=== PATIENT | female | born 1975 | race Caucasian/White ===

== ENCOUNTER 2017-03-10 13:29 | Emergency (ER) | payer MEDICARE, MEDICAID ==
[2017-03-10 14:16] VITALS: BP 125/57
--- NOTE | 2017-03-10 15:43 | EDM.PDOC ---
ED HPI GENERAL MEDICAL PROBLEM - General Chief Complaint: Genitourinary Problem Stated Complaint: RIGHT SIDE PAIN Time Seen by Provider: 03/10/17 14:45 Source of Information: Reports: Patient History Limitations: Reports: No Limitations - History of Present Illness INITIAL COMMENTS - FREE TEXT/NARRATIVE: Patient is a 41 year old a female who presents to the E.D. complaining of right sided pain. Described as sharp in nature severe with onset. Pain started after having a BM. She has had one episode with no further issues since. States Stool was soft/formed with straining required. She was sitting on the toilet when this occurred after voiding. Pain lasted for approx 10 to 15 minutes. She became nauseated and sweathy. She has no history of kidney stones , constipations, ovarian cyst, recent illness, dysuria, abdnormal vaginal discharge, sexually active, diarrhea, or any additional complaints. PMH: Factor V Leiden, Seasonal Allergies Medicatations: BCP, ASA, Singulair, and claritan SH: none stated PCP: Samples Right Flank Pain Score (Numeric/FACES): 1 - Related Data Allergies Allergy/AdvReac Type Severity Reaction Status Date / Time No Known Allergies Allergy Verified 03/10/17 14:12 Home Meds: Home Meds Albuterol Sulfate [Proventil Hfa] 1 puff INH ASDIRECTED 07/29/16 [History] Aspirin [Halfprin] 81 mg PO DAILY 07/29/16 [History] Esomeprazole [NexIUM] 40 mg PO DAILY 07/29/16 [History] Hether 0.35 mg PO DAILY 07/29/16 [History] Loratadine [Alavert] 10 mg PO DAILY 07/29/16 [History] Monolukast 10 mg PO DAILY 07/29/16 [History] Prednisone [IMW: predniSONE] 40 mg PO WITHBREAKFAST #10 tab 07/29/16 [Rx] Past Medical History Other Respiratory History: seasonal allergies, pet and animal danders. Gastrointestinal History: Reports: GERD, Hemorrhoids - Past Surgical History HEENT Surgical History: Reports: Oral Surgery Social & Family History - Tobacco Use Smoking Status *Q: Never Smoker - Caffeine Use Caffeine Use: Reports: Soda - Recreational Drug Use Recreational Drug Use: No ED ROS GENERAL - Review of Systems Review Of Systems: ROS reveals no pertinent complaints other than HPI. ED EXAM, GI/ABD - Physical Exam Exam: See Below Exam Limited By: No Limitations General Appearance: Alert, WD/WN, No Apparent Distress Ears: Hearing Grossly Normal Nose: Normal Inspection Throat/Mouth: Normal Voice, No Airway Compromise Neck: Normal Inspection, Supple Respiratory/Chest: No Respiratory Distress, Lungs Clear, Normal Breath Sounds, No Accessory Muscle Use, Chest Non-Tender Cardiovascular: Normal Peripheral Pulses, Regular Rate, Rhythm GI/Abdominal Exam: Normal Bowel Sounds, Soft, Non-Tender, No Organomegaly, No Distention, No Abnormal Bruit, Other (Right sided flank discomfort with palpation. Mild in nature. ) Back Exam: Normal Inspection, Full Range of Motion. No: CVA Tenderness (L), CVA Tenderness (R) Extremities: Normal Inspection, Normal Range of Motion, Non-Tender Neurological: Alert, Oriented, CN II-XII Intact, Normal Cognition, No Motor/ Sensory Deficits Psychiatric: Normal Affect Skin Exam: Warm, Dry, Intact, Normal Color Course - Vital Signs Last Recorded V/S: Last Vital Signs Temp 97.3 F 03/10/17 14:12 Pulse 80 03/10/17 14:12 Resp 15 03/10/17 14:12 BP 125/57 L 03/10/17 14:12 Pulse Ox 100 03/10/17 14:12 - Orders/Labs/Meds Labs: Laboratory Tests 03/10/17 03/10/17 03/10/17 Range/Units 14:12 15:45 15:45 WBC 8.78 (3.98-10.04) K/mm3 RBC 4.56 (3.98-5.22) M/mm3 Hgb 14.2 (11.2-15.7) gm/L Hct 42.9 (34.1-44.9) % MCV 94.1 (79.4-94.8) fl MCH 31.1 (25.6-32.2) pg MCHC 33.1 (32.2-35.5) g/dl RDW Std Deviation 42.1 (36.4-46.3) fL Plt Count 204 (182-369) K/mm3 MPV 10.3 (9.4-12.3) fl Neut % (Auto) 76.4 H (34.0-71.1) % Lymph % (Auto) 16.1 L (19.3-51.7) % Bibb % (Auto) 6.0 (4.7-12.5) % Eos % (Auto) 1.0 (0.7-5.8) Baso % (Auto) 0.3 (0.1-1.2) % Neut # (Auto) 6.70 H (1.56-6.13) K/mm3 Lymph # (Auto) 1.41 (1.18-3.74) K/mm3 Bibb # (Auto) 0.53 H (0.24-0.36) K/mm3 Eos # (Auto) 0.09 (0.04-0.36) K/mm3 Baso # (Auto) 0.03 (0.01-0.08) K/mm3 Sodium 141 (136-145) mEq/L Potassium 4.1 (3.5-5.1) mEq/L Chloride 104 (98-107) mEq/L Carbon Dioxide 28 (21-32) mEq/L Anion Gap 13.1 (5-15) BUN 11 (7-18) mg/dL Creatinine 1.3 H (0.55-1.02) mg/dL Est Cr Clr Drug Dosing 60.12 mL/min Estimated GFR (MDRD) 45 (>60) mL/min BUN/Creatinine Ratio 8.5 L (14-18) Glucose 89 (74-106) mg/dL Calcium 9.1 (8.5-10.1) mg/dL Total Bilirubin 0.5 (0.2-1.0) mg/dL AST 13 L (15-37) U/L ALT 20 (14-59) U/L Alkaline Phosphatase 63 (46-116) U/L C-Reactive Protein 0.4 (<1.0) mg/dL Total Protein 7.7 (6.4-8.2) g/dl Albumin 4.4 (3.4-5.0) g/dl Globulin 3.3 gm/dL Albumin/Globulin Ratio 1.3 (1-2) HCG, Qual (NEGATIVE) Urine Color Darren H (Yellow) Urine Appearance Clear (Clear) Urine pH 5.5 (5.0-8.0) Ur Specific [place] > or = 1.030 (1.005-1.030) Urine Protein 1+ H (Negative) Urine Glucose (UA) Negative (Negative) Urine Ketones Negative (Negative) Urine Occult Blood 3+ H (Negative) Urine Nitrite Negative (Negative) Urine Bilirubin 1+ H (Negative) Urine Urobilinogen 0.2 (0.2-1.0) Ur Leukocyte Esterase Negative (Negative) Urine RBC >100 H (0-5) /hpf Urine WBC 0-5 (0-5) /hpf Ur Epithelial Cells 0-5 (0-5) /hpf Urine Bacteria Many H (FEW) /hpf Urine Mucus Moderate H (FEW) /hpf 03/10/17 Range/Units 15:45 WBC (3.98-10.04) K/mm3 RBC (3.98-5.22) M/mm3 Hgb (11.2-15.7) gm/L Hct (34.1-44.9) % MCV (79.4-94.8) fl MCH (25.6-32.2) pg MCHC (32.2-35.5) g/dl RDW Std Deviation (36.4-46.3) fL Plt Count (182-369) K/mm3 MPV (9.4-12.3) fl Neut % (Auto) (34.0-71.1) % Lymph % (Auto) (19.3-51.7) % Bibb % (Auto) (4.7-12.5) % Eos % (Auto) (0.7-5.8) Baso % (Auto) (0.1-1.2) % Neut # (Auto) (1.56-6.13) K/mm3 Lymph # (Auto) (1.18-3.74) K/mm3 Bibb # (Auto) (0.24-0.36) K/mm3 Eos # (Auto) (0.04-0.36) K/mm3 Baso # (Auto) (0.01-0.08) K/mm3 Sodium (136-145) mEq/L Potassium (3.5-5.1) mEq/L Chloride (98-107) mEq/L Carbon Dioxide (21-32) mEq/L Anion Gap (5-15) BUN (7-18) mg/dL Creatinine (0.55-1.02) mg/dL Est Cr Clr Drug Dosing mL/min Estimated GFR (MDRD) (>60) mL/min BUN/Creatinine Ratio (14-18) Glucose (74-106) mg/dL Calcium (8.5-10.1) mg/dL Total Bilirubin (0.2-1.0) mg/dL AST (15-37) U/L ALT (14-59) U/L Alkaline Phosphatase (46-116) U/L C-Reactive Protein (<1.0) mg/dL Total Protein (6.4-8.2) g/dl Albumin (3.4-5.0) g/dl Globulin gm/dL Albumin/Globulin Ratio (1-2) HCG, Qual Negative (NEGATIVE) Urine Color (Yellow) Urine Appearance (Clear) Urine pH (5.0-8.0) Ur Specific [place] (1.005-1.030) Urine Protein (Negative) Urine Glucose (UA) (Negative) Urine Ketones (Negative) Urine Occult Blood (Negative) Urine Nitrite (Negative) Urine Bilirubin (Negative) Urine Urobilinogen (0.2-1.0) Ur Leukocyte Esterase (Negative) Urine RBC (0-5) /hpf Urine WBC (0-5) /hpf Ur Epithelial Cells (0-5) /hpf Urine Bacteria (FEW) /hpf Urine Mucus (FEW) /hpf Meds: Medications Discontinued Medications Generic Name Dose Route Start Last Admin Trade Name Freq PRN Reason Stop Dose Admin Sodium Chloride 1,000 mls @ 250 mls/hr 03/10/17 15:45 03/10/17 15:48 Normal Saline IV 250 mls/hr ASDIRECTED ALEX Administration Sodium Chloride 10 ml 03/10/17 15:40 03/10/17 16:12 Saline Flush FLUSH 10 ml ASDIRECTED PRN Administration Keep Vein Open - Re-Assessments/Exams Free Text/Narrative Re-Assessment/Exam: UA revealed darren in color, protein one plus, occult blood 3+, bilirubin 1+, rbc 's greater than 100, bacteria many, and mucus moderate. Patient has no history of kidney stones or ovarian cysts. Presumably patient may have passed a stone. She is not on her menstrual cycle. Will obtain basic labs including CBC, chem 14, CRP. In addition CT of the abdomen and pelvis without contrast ordered. Patient is not thus no hCG will be obtained. Labs reviewed. 03/10/[address] of the abdomen and pelvis without IV contrast impression: No acute abnormality in the abdomen or pelvis. 1706 Patient remains pain-free. Unclear etiology of current complaint. Patient possibly passed a kidney stone with the amount of blood within her urine. No findings consistent for infection. She has no history of ovarian cyst. She is ready be discharged home. Discharge instructions as documented. Departure - Departure Time of Disposition: 17:09 Disposition: Home, Self-Care 01 Condition: Good Clinical Impression: Right flank pain Hematuria Qualifiers: Hematuria type: other microscopic Qualified Code(s): R31.29 - Other microscopic hematuria Abdominal pain Qualifiers: Abdominal location: right lower quadrant Qualified Code(s): R10.31 - Right lower quadrant pain - Discharge Information Instructions: Abdominal Pain, Adult, [id number], Flank Pain, [id number], Hematuria, Adult Referrals: Ana Joe PA [Primary Care Provider] - Forms: ED Department Discharge Additional Instructions: As discussed CT the abdomen did not reveal any acute abnormalities. Blood work was essentially normal. UA did reveal copious amounts of blood present. Etiology of current complaint possibility of passing a kidney stone.You have had no history of ovarian cyst. Thus will have you followup with PCP this coming week to ensure hematuria is resolving. Push the fluids. Return to the E.D. for any new or worsening symptoms.
[2017-03-10] MEDS ORDERED: Sodium Chloride 0.9% 1,000 ML IV SCH (15:45)
[2017-03-10] MEDS: Sodium Chloride 0.9% 10 ML Syringe FLUSH PRN ×2 (16:02→16:12)
--- NOTE | 2017-03-11 08:00 | CT ---
CT abdomen and pelvis Technique: Multiple axial sections were obtained from above the dome of the diaphragm inferiorly through the pubic symphysis. Intravenous and oral contrast has not been given. Study was performed as a ureteral stone protocol. Comparison: No previous CT imaging. Findings: Kidneys show no abnormal calcifications. No ureteral dilatation or ureteral stone is seen. No bladder calculi are identified. Visualized lung bases show nothing acute. Noncontrast appearance of the liver and spleen appears within normal limits. Adrenal glands show no nodule. Pancreas is within normal limits. Gallbladder shows no calcified gallstones. Aorta shows no aneurysmal dilatation. No retroperitoneal adenopathy or mesenteric abnormalities are seen. Appendix is seen which appears normal. No pelvic mass or adenopathy is seen. Minimal increased stool is seen within portions of the colon. No free fluid or inflammatory change is seen. Bone window settings were reviewed which appear within normal limits for the patient's age. Impression: 1. No renal calculi, ureteral dilatation or ureteral stone is seen. 2. Slight increased stool within the colon. 3. Nothing acute is appreciated on noncontrast CT study of the abdomen and pelvis performed as a ureteral stone protocol. Diagnostic code #2 I agree with preliminary report issued by [employer] ([employer] preliminary report dictated on 03/10/17, 5:12 PM Central Time)
== END 2017-03-10 17:31 | disposition home or self-care (01) ==
LOC: JD.ED 13:29
DX: R10.31 Right lower quadrant pain (principal); R31.29 Other microscopic hematuria; K21.9 Gastro-esophageal reflux disease without esophagitis; Z79.82 Long term (current) use of aspirin; Z79.899 Other long term (current) drug therapy
CPT/HCPCS: 36415; 74176; 80053; 81001; 84703; 85025; 86140; 87086; 96360; 96361; 99284; J7040; J7050

== ENCOUNTER 2017-10-16 09:24 | Day surgery (SDC) | payer MEDICARE, MEDICAID ==
[~2017-10-16 09:24] MED LIST: Lactated Ringers 1,000 ML IV SCH; Lidocaine 1%/Sod Bicarbonate in NS 8.4% 1 ML Syringe IDERM PRN; Midazolam 1 MG/ML 2 ML SDV ONE; Propofol 200 MG/20 ML SDV ONE; Sodium Chloride 0.9% 10 ML Syringe FLUSH PRN; fentaNYL 100 MCG/2 ML SDV ONE
--- NOTE | 2017-10-16 10:00 | PCM.PREANE ---
Preanesthetic Assessment - Procedure Proposed Procedure: diag colonoscopy - Anesthesia/Transfusion/Family Hx Anesthesia History: Prior Anesthesia Without Reaction Family History of Anesthesia Reaction: No Transfusion History: No Prior Transfusion(s) - Review of Systems General: No Symptoms Pulmonary: Cough (3-4 years) Cardiovascular: No Symptoms Gastrointestinal: Abdominal Pain (today) Neurological: No Symptoms Other: Reports: Thyroid Problems - Physical Assessment NPO Status Date: 10/15/17 NPO Status Time: 23:59 Pulse: 98 O2 Sat by Pulse Oximetry: 99 Respiratory Rate: 16 Blood Pressure: 120/98 Temperature: 98.9 F Height: 5 ft 5 in Weight: 75 kg ASA Class: 2 Mental Status: Alert & Oriented x3 Airway Class: Mallampati = 1 Dentition: Reports: Normal Dentition Thyro-Mental Finger Breadths: 3 Mouth Opening Finger Breadths: 3 ROM/Head Extension: Full Lungs: Clear to Auscultation, Normal Respiratory Effort Cardiovascular: Regular Rate, Regular Rhythm - Lab Values: refusing urine hcg preg test - Allergies Allergies/Adverse Reactions: Allergies Allergy/AdvReac Type Severity Reaction Status Date / Time cat dander Allergy Sneezing Verified 10/15/17 14:44 - Blood Blood Available: No - Acknowledgements Anesthesia Type Planned: MAC Pt an Appropriate Candidate for the Planned Anesthesia: Yes Alternatives and Risks of Anesthesia Discussed w Pt/Guardian: Yes Pt/Guardian Understands and Agrees with Anesthesia Plan: Yes PreAnesthesia Questionnaire HEENT History: Reports: Allergic Rhinitis Cardiovascular History: Reports: Blood Clots/VTE/DVT Other Respiratory History: seasonal allergies, pet and animal danders, chronic cough Gastrointestinal History: Reports: GERD, Hemorrhoids Genitourinary History: Reports: UTI, Recurrent, Other (See Below) Other Genitourinary History: ovarian cyst, vaginal discharge and itching, bartholian cyst, dysuria, hematuria MAGNETIC DOCTOR History: Reports: None Musculoskeletal History: Reports: Other (See Below) Other Musculoskeletal History: heel spur surgery Neurological History: Reports: None Psychiatric History: Reports: None Endocrine/Metabolic History: Reports: Hypothyroidism Hematologic History: Reports: Other (See Below) Other Hematologic History: factor V leiden Immunologic History: Reports: None Oncologic (Cancer) History: Reports: None Dermatologic History: Reports: Other (See Below) Other Dermatologic History: skin infection - Past Surgical History Head Surgeries/Procedures: Reports: None HEENT Surgical History: Reports: Oral Surgery Cardiovascular Surgical History: Reports: None Respiratory Surgical History: Reports: None GI Surgical History: Reports: Other (See Below) (hemmorrhoid) Female Surgical History: Reports: None Male Surgical History: Reports: None Endocrine Surgical History: Reports: None Neurological Surgical History: Reports: None Musculoskeletal Surgical History: Reports: None, Other (See Below) (heel spur) Oncologic Surgical History: Reports: None - History Comment History Comment: not on singular but on proair prn - SUBSTANCE USE Smoking Status *Q: Never Smoker Tobacco Use Within Last Twelve Months: No Second Hand Smoke Exposure: Yes Days Per Week of Alcohol Use: 1 (seldom) Number of Drinks Per Day: 1 Total Drinks Per Week: 1 Recreational Drug Use History: No - HOME MEDS Home Medications: Home Meds Aspirin [Halfprin] 81 mg PO DAILY 07/29/16 [History] Esomeprazole Magnesium [Nexium] 40 mg PO DAILY 10/15/17 [History] Montelukast [Singulair] 10 mg PO DAILY 10/15/17 [History] Norethindrone [Jojo] 0.35 mg PO DAILY 10/15/17 [History] - CURRENT (IN HOUSE) MEDS Current Meds: Current Medications Lactated Ringer's (Ringers, Lactated) 1,000 mls @ 125 mls/hr IV ASDIRECTED ALEX Stop: 10/16/17 23:00 Lidocaine/Sodium Bicarbonate (Buffered Lidocaine 1% In Ns 8.4%) 0.25 ml IDERM ONETIME PRN PRN Reason: Prior to IV Start Stop: 10/16/17 18:00 Sodium Chloride (Saline Flush) 10 ml FLUSH ASDIRECTED PRN PRN Reason: Keep Vein Open Stop: 10/16/17 18:00 Discontinued Medications Fentanyl (Sublimaze) Confirm Administered Dose 100 mcg .ROUTE .STK-MED ONE Stop: 10/16/17 09:23 Midazolam HCl (Versed 1 Mg/Ml) Confirm Administered Dose 2 mg .ROUTE .STK-MED ONE Stop: 10/16/17 09:24 Propofol (Diprivan 20 Ml) Confirm Administered Dose 200 mg .ROUTE .STK-MED ONE Stop: 10/16/17 09:23
--- NOTE | 2017-10-16 11:23 | PCM.OPNOTE ---
- General Post-Op/Procedure Note Date of Surgery/Procedure: 10/16/17 Operative Procedure(s): Colonoscopy with random rectal biopsy Findings: Anal tags but otherwise normal colonoscopy Pre Op Diagnosis: Change in bowel habits Post-Op Diagnosis: Anal tags Anesthesia Technique: MAC, Moderate Sedation Primary Surgeon: Oscar nSow Pathology: Rectal biopsy EBL in mLs: 0 Complications: None Condition: Good Free Text/Narrative:: After adequate IV sedation and analgesia was obtained with monitoring the patient was placed on her left side. Perianal inspection revealed the anal tags. Digital rectal examination was normal. A lubricated colonoscope was inserted into the rectum and advanced to the cecum without difficulty. The bowel preparation was excellent. The cecum right colon transverse and descending colons were endoscopically normal with no mass lesions or inflammatory changes seen. The descending and sigmoid were unremarkable as well. The rectum in both views was endoscopically normal but because of her history a random biopsy in the distal rectum was taken for pathologic evaluation. Air was removed as I finished the procedure which she tolerated well. Body Straightener photographs were taken for the patient and for the medical record.
--- NOTE | 2017-10-16 11:25 | PCM48HPAN ---
Post Anesthesia Note - EVALUATION WITHIN 48HRS OF ANESTHETIC Vital Signs in Normal Range: Yes Patient Participated in Evaluation: Yes Respiratory Function Stable: Yes Airway Patent: Yes Cardiovascular Function Stable: Yes Hydration Status Stable: Yes Pain Control Satisfactory: Yes Nausea and Vomiting Control Satisfactory: Yes Mental Status Recovered: Yes Pulse Rate: 75 SaO2: 99 Resp Rate: 12 Temperature: 98.8 F Blood Pressure: 116/61
[2017-10-16 11:48] VITALS: BP 108/64
== END 2017-10-16 12:08 | disposition home or self-care (01) ==
LOC: JD.SDS 09:24
PROVIDERS: ATTEND Surgery
DX: R19.4 Change in bowel habit (principal); K64.4 Residual hemorrhoidal skin tags; K21.9 Gastro-esophageal reflux disease without esophagitis; E03.9 Hypothyroidism, unspecified; Z79.82 Long term (current) use of aspirin; Z79.899 Other long term (current) drug therapy; Z98.890 Other specified postprocedural states
CPT/HCPCS: 45380; J2250; J3010; J7120; 00811; J2704

== ENCOUNTER 2019-03-31 11:01 | Emergency (ER) | payer MEDICARE, MEDICAID ==
[2019-03-31 11:05] VITALS: BP 131/74; PULSE 92
[2019-03-31] MEDS ORDERED: HYDROmorphone 1 MG/ML Syringe IVPUSH ONE (11:54)
[2019-03-31] MEDS ORDERED: Metoclopramide 10 MG/2 ML SDV IVPUSH ONE (11:55)
--- NOTE | 2019-03-31 11:59 | EDM.PDOC ---
ED HPI GENERAL MEDICAL PROBLEM - General Chief Complaint: Back Pain or Injury Stated Complaint: [facility] Time Seen by Provider: 03/31/19 11:54 Source of Information: Reports: Patient, Family (mother) History Limitations: Reports: No Limitations - History of Present Illness INITIAL COMMENTS - FREE TEXT/NARRATIVE: 33-year-old female presents to the ED with diffuse low back pain which she describes as quite spastic and worse with certain movements. Pain radiates down her right thigh towards her knee. Constant feeling of need to void without any significant dysuria. No gross hematuria. She of kidney stones. She states pain is mostly across her lower back both sides and not up into the flanks. She has a history of recurrent urinary tract infections. Her father has kidney stones but she has never had one. No previous abdominal surgery. On examination the patient is febrile. Onset: Sudden (She she started to have some low back discomfort last evening but it became much more severe this morning) Onset Date: 03/31/19 Onset Time: 07:30 Duration: Hour(s):, Getting Worse Location: Reports: Back (Fused low back pain with a feeling of need to void.), Radiates to ( In radiates down pain radiates down the right leg to her knee.) Quality: Reports: Ache, Burning, Sharp, Stabbing Severity: Moderate Improves with: Reports: None Worsens with: Reports: None, Other Context: Denies: Activity, Exercise, Lifting, Sick Contact, Trauma, Other Associated Symptoms: Reports: Fever/Chills, Loss of Appetite, Malaise. 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.) Lower Back Pain Score (Numeric/FACES): 10 - Related Data Allergies Allergy/AdvReac Type Severity Reaction Status Date / Time cat dander Allergy Sneezing Verified 03/31/19 11:05 Home Meds: Home Meds Aspirin [Halfprin] 81 mg PO DAILY 07/29/16 [History] Esomeprazole Magnesium [Nexium] 40 mg PO DAILY 10/15/17 [History] Loratadine 1 tab PO DAILY 10/16/17 [History] Albuterol Sulfate [Proair Hfa] 2 puff IH DAILY 01/31/19 [History] Diclofenac Sodium [Voltaren] 50 mg PO TID #21 tab.ec 03/31/19 [Rx] Past Medical History HEENT History: Reports: Allergic Rhinitis Cardiovascular History: Reports: Blood Clots/VTE/DVT Respiratory History: Reports: Asthma Other Respiratory History: seasonal allergies, pet and animal danders, chronic cough Gastrointestinal History: Reports: GERD, Hemorrhoids Genitourinary History: Reports: UTI, Recurrent, Other (See Below) Other Genitourinary History: ovarian cyst, vaginal discharge and itching, bartholian cyst, dysuria, hematuria 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 Musculoskeletal History: Reports: Other (See Below) Other Musculoskeletal History: heel spur surgery Psychiatric History: Reports: None Endocrine/Metabolic History: Reports: Hypothyroidism Hematologic History: Reports: Other (See Below) Other Hematologic History: factor V leiden Immunologic History: Reports: None Oncologic (Cancer) History: Reports: None Dermatologic History: Reports: Other (See Below) Other Dermatologic History: skin infection - Past Surgical History Head Surgeries/Procedures: Reports: None HEENT Surgical History: Reports: Oral Surgery Cardiovascular Surgical History: Reports: None Respiratory Surgical History: Reports: None GI Surgical History: Reports: Other (See Below) Female Surgical History: Reports: None Endocrine Surgical History: Reports: None Neurological Surgical History: Reports: None Musculoskeletal Surgical History: Reports: None, Other (See Below) Oncologic Surgical History: Reports: None - History Comment History Comment: not on singular but on proair prn Social & Family History - Tobacco Use Smoking Status *Q: Never Smoker - Caffeine Use Caffeine Use: Reports: Soda - Recreational Drug Use Recreational Drug Use: No - Living Situation & Occupation Living situation: Reports: Occupation: Disabled ED ROS GENERAL - Review of Systems Review Of Systems: See Below Constitutional: Reports: Fever, Malaise (Patient feels very febrile to me.), Weakness, Fatigue, Decreased Appetite. Denies: Chills, Weight Loss HEENT: Reports: No Symptoms Respiratory: Reports: No Symptoms Cardiovascular: Reports: No Symptoms Endocrine: Reports: Fatigue GI/Abdominal: Reports: Abdominal Pain (Diffuse suprapubic lower abdominal pain radiating into the back.) : Reports: Frequency, Urgency. Denies: Dysuria Musculoskeletal: Reports: Back Pain (Views low back pain worsened by movement.) Skin: Reports: No Symptoms. Denies: Cyanosis, Jaundice, Mottled, Pallor, Diaphoresis, Pruritis, Rash, Erythema, Wound, Burn(s) Neurological: Reports: Difficulty Walking (Due to low back pain.), Weakness. Denies: Confusion, Dizziness, Headache, Pre-Existing Deficit, Syncope, Trouble Speaking Psychiatric: Reports: No Symptoms Hematologic/Lymphatic: Reports: No Symptoms Immunologic: Reports: No Symptoms ED EXAM,LOWER BACK PAIN/INJURY - Physical Exam Exam: See Below Exam Limited By: No Limitations General Appearance: Alert, WD/WN, Moderate Distress, Other (Since I seen her she was on the bedpan had passed a few drops of clear looking urine.) Eye Exam: Bilateral Eye: Normal Inspection Throat/Mouth: Normal Inspection, Normal Lips, Normal Oropharynx Head: Atraumatic, Normocephalic Neck: Normal Inspection, Supple, Non-Tender, Full Range of Motion. No: Lymphadenopathy (R) Respiratory/Chest: No Respiratory Distress, Lungs Clear, Normal Breath Sounds, No Accessory Muscle Use, Chest Non-Tender Cardiovascular: Normal Peripheral Pulses, Regular Rate, Rhythm, No Edema, No Gallop, No Murmur, No Rub GI/Abdominal: Normal Bowel Sounds, Soft, Non-Tender, No Organomegaly, Guarding, Tender. No: Rigid (Under suprapubically with mild guarding), Rebound Back Exam: Normal Inspection, Decreased Range of Motion, Other. No: Muscle Spasm Extremities: Normal Inspection (There was no vertebral facet joint tenderness throughout the lumbar spine on examination bilaterally. There is no overlying muscle spasm. Pain appears to be deeper.), Normal Range of Motion, Non-Tender Neurological: Alert, Normal Mood/Affect, Normal Dorsiflexion, CN II-XII Intact, Oriented x 3 Psychiatric: Normal Affect, Normal Mood Skin Exam: Warm, Dry, Intact, Normal Color, No Rash Course - Vital Signs Last Recorded V/S: Last Vital Signs Temp 36.9 C 03/31/19 11:02 Pulse 92 03/31/19 11:02 Resp 16 03/31/19 11:02 BP 131/74 03/31/19 11:02 Pulse Ox 100 03/31/19 11:02 - Orders/Labs/Meds Orders: Active Orders 24 hr Category Date Time Status CULTURE BLOOD [BC] Stat Lab 03/31/19 12:10 Received CULTURE BLOOD [BC] Stat Lab 03/31/19 12:15 Received Blood Culture x2 Reflex Set [OM.PC] Stat Oth 03/31/19 11:56 Ordered Labs: Laboratory Tests 03/31/19 03/31/19 03/31/19 Range/Units 12:05 12:10 12:10 WBC 7.45 (3.98-10.04) K/mm3 RBC 4.60 (3.98-5.22) M/mm3 Hgb 14.4 D (11.2-15.7) gm/dl Hct 43.5 (34.1-44.9) % MCV 94.6 (79.4-94.8) fl MCH 31.3 (25.6-32.2) pg MCHC 33.1 (32.2-35.5) g/dl RDW Std Deviation 42.1 (36.4-46.3) fL Plt Count 196 (182-369) K/mm3 MPV 11.2 (9.4-12.3) fl Neutrophils % (Manual) 89 H (40-60) % Band Neutrophils % 0 (0-10) % Lymphocytes % (Manual) 10 L (20-40) % Atypical Lymphs % 0 % Monocytes % (Manual) 1 L (2-10) % Eosinophils % (Manual) 0 L (0.7-5.8) % Basophils % (Manual) 0 L (0.1-1.2) Platelet Estimate Adequate RBC Morph Comment Normal Sodium 138 (136-145) mEq/L Potassium 3.6 (3.5-5.1) mEq/L Chloride 106 (98-107) mEq/L Carbon Dioxide 23 (21-32) mEq/L Anion Gap 12.6 (5-15) BUN 12 (7-18) mg/dL Creatinine 1.0 (0.55-1.02) mg/dL Est Cr Clr Drug Dosing 65.95 mL/min Estimated GFR (MDRD) > 60 (>60) mL/min BUN/Creatinine Ratio 12.0 L (14-18) Glucose 90 (74-106) mg/dL Lactic Acid (0.4-2.0) mmol/L Calcium 8.8 (8.5-10.1) mg/dL Total Bilirubin 0.7 (0.2-1.0) mg/dL AST 12 L (15-37) U/L ALT 21 (14-59) U/L Alkaline Phosphatase 56 (46-116) U/L C-Reactive Protein < 0.2 (<1.0) mg/dL Total Protein 6.8 (6.4-8.2) g/dl Albumin 4.1 (3.4-5.0) g/dl Globulin 2.7 gm/dL Albumin/Globulin Ratio 1.5 (1-2) Urine Color Yellow (Yellow) Urine Appearance Clear (Clear) Urine pH 6.5 (5.0-8.0) Ur Specific [place] 1.010 (1.005-1.030) Urine Protein Negative (Negative) Urine Glucose (UA) Negative (Negative) Urine Ketones Negative (Negative) Urine Occult Blood 1+ H (Negative) Urine Nitrite Negative (Negative) Urine Bilirubin Negative (Negative) Urine Urobilinogen 0.2 (0.2-1.0) Ur Leukocyte Esterase Negative (Negative) Urine RBC 10-20 H (0-5) /hpf Urine WBC 0-5 (0-5) /hpf Ur Squamous Epith Cells 0-5 (0-5) /hpf Urine Bacteria Few (FEW) /hpf Urine Mucus Few (FEW) /hpf // Range/Units 12:10 WBC (3.98-10.04) K/mm3 RBC (3.98-5.22) M/mm3 Hgb (11.2-15.7) gm/dl Hct (34.1-44.9) % MCV (79.4-94.8) fl MCH (25.6-32.2) pg MCHC (32.2-35.5) g/dl RDW Std Deviation (36.4-46.3) fL Plt Count (182-369) K/mm3 MPV (9.4-12.3) fl Neutrophils % (Manual) (40-60) % Band Neutrophils % (0-10) % Lymphocytes % (Manual) (20-40) % Atypical Lymphs % % Monocytes % (Manual) (2-10) % Eosinophils % (Manual) (0.7-5.8) % Basophils % (Manual) (0.1-1.2) Platelet Estimate RBC Morph Comment Sodium (136-145) mEq/L Potassium (3.5-5.1) mEq/L Chloride (98-107) mEq/L Carbon Dioxide (21-32) mEq/L Anion Gap (5-15) BUN (7-18) mg/dL Creatinine (0.55-1.02) mg/dL Est Cr Clr Drug Dosing mL/min Estimated GFR (MDRD) (>60) mL/min BUN/Creatinine Ratio (14-18) Glucose (74-106) mg/dL Lactic Acid 1.2 (0.4-2.0) mmol/L Calcium (8.5-10.1) mg/dL Total Bilirubin (0.2-1.0) mg/dL AST (15-37) U/L ALT (14-59) U/L Alkaline Phosphatase (46-116) U/L C-Reactive Protein (<1.0) mg/dL Total Protein (6.4-8.2) g/dl Albumin (3.4-5.0) g/dl Globulin gm/dL Albumin/Globulin Ratio (1-2) Urine Color (Yellow) Urine Appearance (Clear) Urine pH (5.0-8.0) Ur Specific [place] (1.005-1.030) Urine Protein (Negative) Urine Glucose (UA) (Negative) Urine Ketones (Negative) Urine Occult Blood (Negative) Urine Nitrite (Negative) Urine Bilirubin (Negative) Urine Urobilinogen (0.2-1.0) Ur Leukocyte Esterase (Negative) Urine RBC (0-5) /hpf Urine WBC (0-5) /hpf Ur Squamous Epith Cells (0-5) /hpf Urine Bacteria (FEW) /hpf Urine Mucus (FEW) /hpf Meds: Medications Discontinued Medications Generic Name Dose Route Start Last Admin Trade Name Freq PRN Reason Stop Dose Admin Hydromorphone HCl 1 mg 03/31/19 11:54 03/31/19 12:43 Dilaudid IVPUSH 03/31/19 11:55 1 mg ONETIME ONE Administration Sodium Chloride 1,000 mls @ 150 mls/hr 03/31/19 12:00 03/31/19 12:54 Normal Saline IV 150 mls/hr ASDIRECTED ALEX Administration Metoclopramide HCl 7.5 mg 03/31/19 11:55 03/31/19 12:38 Reglan IVPUSH 03/31/19 11:56 7.5 mg ONETIME ONE Administration - Radiology Interpretation Free Text/Narrative:: 43-year-old female presents to the ED with gradually worsening low back pain since last night. Pain is severe this morning a fairly sudden onset and perhaps worse on the right as compared to the left. She does feel pain across her lower back bilaterally. She has some concerns about kidney stones which she's had no nausea vomiting. She just has a constant feeling of need to void. Had several urinary tract infection the past. This wound is not producing any dysuria. Clinically however she is febrile to exam. No costovertebral angle tenderness on exam. She is tender suprapubically on abdominal examination with sparsely of bowel sounds. Plan urinalysis. Routine labs to include blood cultures 2 and a lactic acid. Been Tylenol 975 mg for fever relief. Will be given IV Dilaudid 1 mg and Reglan 7.5 mg for pain relief and nausea relief. The etiology of her low back pain to this severity is unclear. Concern is with possible central disc herniation. Due to the pain rating down her right leg. I will await the results of the test since she has a fever clinically. - Re-Assessments/Exams Free Text/Narrative Re-Assessment/Exam: 03/31/19 13:18 Labs reveal a normal hematology profile with white blood cell count is 7.45. It is 89% neutrophils however with no band cells reported. Hemoglobin is 14.4 with hematocrit of 43.5. Clinical 196,000. Sodium 138 with potassium of 3.6. Chloride 106 bicarbonate 23. Anion gap is 12.6. BUN is 12 with a creatinine of 1.0. GFR is greater than 60. Glucose is 90 with a lactic acid of 1.2.. Calcium is 8.8 liver function is normal. C-reactive protein is less than 0.2. Protein is 6.8 with albumin fraction less than 4.1. Urinalysis shows 1+ occult blood intent 10-20 RBCs per per field with no sign of infection. This is suggestive of a kidney stone. We'll proceed with CT of the abdomen/pelvis per renal protocol 03/31/19 13:26 she reports her pain is down to 2 out of 10 and is referred more to her right lower back buttock and hip area. Very atypical presentation for kidney stone other than the fact that she had a and down reflex like she wanted to push to have a baby. 03/31/19 14:48 CT of the abdomen has been performed per renal protocol. Kidney show no abnormal calcifications. 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 No ureteral dilatation or ureteral stone is identified within either of the right or left ureters. Visualized portions of both lung bases show nothing acute. Liver appears to be normal. Gallbladder contains no calcified gallstones. Spleen appears normal. Lungs show no nodules. Aorta shows no aneurysm. No retroperitoneal adenopathy. No mesenteric abnormalities noted. Appendix is visualized is normal in size no pelvic mass or adenopathy noted. No free fluid or inflammatory changes are seen within the abdomen or pelvis. There is a small fat-containing umbilical hernia appreciated. Discussed findings with the patient. She has no further suprapubic abdominal pain and no further feeling of need to void consistently. I thought that the ureter on the right side was slightly dilated all way up to the kidney suggesting a recently passed stone. There is stone in the ureter or the bladder suggesting possible blood clot that she does have borderline factor deficiency versus a uric acid stone. however when i stand her up and examined her standing she has significant right paraspinal muscle spasm up to the bottom of her shoulder blade on the right side all the way down to L5. Maximal point of tenderness is actually L to L3 facet joint and L4-L5 facet joint on the right side. There is no her spinal muscle spasm on the left side. This suggests she has suffered a low back strain likely within the last 2-[address] her on Voltaren 50 mg 3 times daily for his 7 days. She was advised that this will probably take the better part of week to get back to normal. She'll follow- up with her primary care physician if any further problems occur. Departure - Departure Time of Disposition: 16:17 Disposition: Home, Self-Care 01 Condition: Fair Clinical Impression: Renal colic on right side Lumbar back sprain Qualifiers: Encounter type: initial encounter Qualified Code(s): S33.5XXA - Sprain of ligaments of lumbar spine, initial encounter - Discharge Information *PRESCRIPTION DRUG MONITORING PROGRAM REVIEWED*: Not Applicable *COPY OF PRESCRIPTION DRUG MONITORING REPORT IN PATIENT JAYME: Not Applicable Prescriptions: Diclofenac Sodium [Voltaren] 50 mg PO TID #21 tab.ec Instructions: Low Back Sprain, Renal Colic, [id number] Referrals: PCP,Unknown [Ordering Only Provider] - Forms: ED Department Discharge Additional Instructions: Evaluation in the emergency room this morning in regards to the development of severe right lower back pain being into your right leg down shear knee. He did symptoms of strong feeling of need to void. Urinalysis proved to have 5-10 RBCs are red blood cells per high-power field concerning for possible kidney stone with your history. There was no sign of any urinary tract infection. CT scan of the abdomen was performed and reveals that the ureter on the right side was mildly dilated down to the bladder suggesting you may have passed a stone. No stone was identified within the urinary bladder. He is still possibly passed a uric acid stone or less likely a small blood clot that would cause renal colic type pain show up on CT scan. There are no stones in either kidney to be problematic in the future that I can identify. However on examination have to got up and walk to the bathroom you to have significant paraspinal muscle spasm on the right side of your lower back. Particularly lumbar 1 to lumbar 4 vertebra or facet joints are very tender to touch. Therefore it appears that you likely have 2 problems. One is that of acute low back strain likely sometime in the last 48 hours causing facet joint inflammation in your right lower back. The treatment for this is time to heal. Very minimal lifting carrying pushing or pulling in the next 7 days. Suggest anti-inflammatory Voltaren 50 mg 3 times daily usually with food for the next 7 days to take pain and inflammation down. In regards to the passage of suspect kidney stone no further intervention is required. At some point in the future you do need to uric acid level checked in your blood when you see the doctor the next time. Follow-up with personal care physician if any further problems occur. - My Orders Last 24 Hours: My Active Orders 03/31/19 11:56 Blood Culture x2 Reflex Set [OM.PC] Stat 03/31/19 12:10 CULTURE BLOOD [BC] Stat 03/31/19 12:15 CULTURE BLOOD [BC] Stat - Assessment/Plan Last 24 Hours: My Active Orders 03/31/19 11:56 Blood Culture x2 Reflex Set [OM.PC] Stat 03/31/19 12:10 CULTURE BLOOD [BC] Stat 03/31/19 12:15 CULTURE BLOOD [BC] Stat
[2019-03-31] MEDS ORDERED: Sodium Chloride 0.9% 1,000 ML IV SCH (12:00)
--- NOTE | 2019-03-31 14:41 | CT ---
CT abdomen and pelvis Technique: Multiple axial sections were obtained from above the dome of the diaphragm inferiorly through the pubic symphysis. Intravenous and oral contrast not utilized. Study has been performed as a ureteral stone protocol. Comparison: Previous CT abdomen and pelvis of 03/10/17. Findings: Kidneys show no abnormal calcifications. 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 No ureteral dilatation or ureteral stone is seen within either the right or left ureters. Visualized portions of both lung bases show nothing acute. Liver contains no focal abnormality. Gallbladder contains no gallstones. Spleen appears within normal limits. Adrenal glands show no nodule. Aorta shows no aneurysm. No retroperitoneal adenopathy or mesenteric abnormalities are seen. Appendix is visualized and is normal in size. No pelvic mass or adenopathy is seen. No free fluid or inflammatory change is seen within the abdomen or pelvis. No bowel dilatation or bowel wall thickening is appreciated. Bone window settings were reviewed which appear within normal limits for the patient's age. Small fat-containing umbilical hernia is noted. Impression: 1. No ureteral dilatation or ureteral stone is seen. 2. Other findings believed to be incidental as noted above. Nothing acute is appreciated on noncontrast CT study of the abdomen and pelvis. Diagnostic code #2
== END 2019-03-31 16:36 | disposition home or self-care (01) ==
LOC: JD.ED 11:01
DX: S33.5XXA Sprain of ligaments of lumbar spine, initial encounter (principal); N23 Unspecified renal colic; J45.909 Unspecified asthma, uncomplicated; Z79.82 Long term (current) use of aspirin; Z91.048 Other nonmedicinal substance allergy status; Z79.51 Long term (current) use of inhaled steroids; X58.XXXA Exposure to other specified factors, initial encounter
CPT/HCPCS: 36415; 74176; 80053; 81001; 83605; 85007; 85027; 86140; 87040; 96361; 96374; 96375; 99284; J1170; J2765; J7040

== ENCOUNTER 2024-10-24 10:53 | Emergency (ER) | payer MEDICARE, MEDICAID ==
[2024-10-24] MEDS ORDERED: Sodium Chloride 0.9% 10 ML Syringe FLUSH PRN (11:40)
[2024-10-24 11:58] LABS: APPEARANCE,URINE CLEAR (Clear); BILIRUBIN,URINE NEGATIVE (Negative); COLOR,URINE YELLOW (Yellow); GLUCOSE,URINE NEGATIVE (Negative); KETONES,URINE NEGATIVE (Negative); LEUKOCYTE ESTERASE,URINE 1+ (Negative); NITRITE,URINE NEGATIVE (Negative); OCCULT BLOOD,URINE 1+ (Negative); PH,URINE 6.5 (5.0-8.0); PROTEIN,URINE NEGATIVE (Negative); UROBILINOGEN,URINE 0.2 (0.2-1.0)
[2024-10-24 12:04] LABS: BACTERIA,URINE MODERATE /hpf (FEW); MUCUS,URINE FEW /hpf (FEW)
[2024-10-24 12:20] LABS: BASOPHILS PERCENT AUTO 0.3 % (0.0-1.0); EOSINOPHILS PERCENT AUTO 0.2 % (0.0-6.0); HEMOGLOBIN 13.5 gm/dl (12.0-16.0); IMMATURE GRAN ABSOLUTE AUTO 0.02 K/mm3 (0.00-0.05); IMMATURE GRAN PERCENT AUTO 0.3 % (0.0-0.4); LYMPHOCYTES PERCENT AUTO 15.3 % (24.0-44.0); MEAN CORPUSCULAR HEMOGLOBIN 31.3 pg (28.0-32.0); MEAN CORPUSCULAR HGB CONC 33.8 g/dl (32.0-36.0); MEAN CORPUSCULAR VOLUME 92.8 fl (83.0-99.0); MEAN PLATELET VOLUME 10.4 fl (9.4-12.3); MONOCYTES ABSOLUTE AUTO 0.5 K/mm3 (0.0-0.8); NEUTROPHILS PERCENT AUTO 75.9 % (41.0-71.0); PLATELET COUNT,PLT 155 K/mm3 (150-400); RED BLOOD CELL COUNT 4.31 M/mm3 (4.10-5.30); WHITE BLOOD CELL COUNT,WBC 6.54 K/mm3 (3.9-11.3)
[2024-10-24] MEDS: Sodium Chloride 0.9% 1,000 ML IV ONE (12:20)
[2024-10-24] MEDS: Ondansetron 4 MG/2 ML SDV IVPUSH ONE (12:20)
[2024-10-24] MEDS: Ketorolac 30 MG/ML SDV IVPUSH ONE (12:21)
[2024-10-24 12:45] LABS: A/G RATIO 1.1 (1-2); ALBUMIN 3.5 g/dl (3.4-5.0); ANION GAP 13.2 (5-15); BILIRUBIN TOTAL 0.9 mg/dL (0.2-1.0); BUN/CREATININE RATIO 8.2 (14-18); C-REACTIVE PROTEIN 7.69 mg/dL (<0.30); CALCIUM 8.5 mg/dL (8.5-10.1); CREATININE 1.1 mg/dL (0.55-1.02); EST CRCL DRUG DOSING (CG) 58.55 mL/min; MAGNESIUM 1.5 mg/dL (1.8-2.4); POTASSIUM,K 3.2 mEq/L (3.5-5.1); PROTEIN TOTAL,TP 6.6 g/dl (6.4-8.2)
[2024-10-24] MEDS: Magnesium Citrate Solution 296 ML Bottle PO ONE (13:30)
[2024-10-24 14:28] VITALS: BP 137/88; PULSE 90
== END 2024-10-24 13:47 | disposition home or self-care (01) ==
LOC: JD.ED 10:53
DX: K59.00 Constipation, unspecified (principal); J45.909 Unspecified asthma, uncomplicated; K21.9 Gastro-esophageal reflux disease without esophagitis; E03.9 Hypothyroidism, unspecified; Z91.048 Other nonmedicinal substance allergy status; Z79.82 Long term (current) use of aspirin; Z79.890 Hormone replacement therapy; Z79.899 Other long term (current) drug therapy
CPT/HCPCS: 36415; 74176; 80053; 81001; 83735; 85025; 86140; 96374; 96375; 99284; A9270; J1885; J2405; J7030